=== PATIENT | female | born 2005 | race Caucasian/White ===

== ENCOUNTER 2023-12-10 16:36 | Observation (INO) | payer OTHER ==
[~2023-12-10] VITALS: Ht 157.5 cm; Wt 54.6 kg
[2023-12-10 18:47] LABS: BASO # 0.1 10^3/uL (0.0-0.2); BASO % 0.6 % (0.0-1.0); EOS # 0.3 10^3/uL (0.0-0.5); EOS % 3.7 % (0.0-3.0); HEMATOCRIT 36.3 % (36.0-47.0); HEMOGLOBIN 12.7 g/dl (12.0-15.5); LYMPH # 2.3 10^3/uL (1.5-5.0); LYMPH % 27.5 % (24.0-44.0); MEAN CORPUSCULAR HEMOGLOBIN 30.1 pg (27.0-33.0); MONO # 0.5 10^3/uL (0.0-0.8); MONO % 5.7 % (2.0-8.0); NEUTROPHILS # 5.2 10^3/uL (1.5-8.5); NEUTROPHILS % 62.3 % (36.0-66.0); PLATELET COUNT, AUTOMATED 237 10^3/uL (150-450); RED BLOOD COUNT 4.22 10^6/uL (4.00-5.40); WHITE BLOOD COUNT 8.4 10^3/uL (4.0-10.0)
[2023-12-10 19:07] LABS: LIPASE 28 U/L (12-53)
[2023-12-10 19:09] LABS: ALBUMIN 3.5 G/DL (3.2-5.2); ALKALINE PHOSPHATASE 44 U/L (46-116); ALT/SGPT < 9 U/L (7.0-40); AST/SGOT 11 U/L (<34); BILIRUBIN,DIRECT < 0.1 MG/DL (<0.4); BILIRUBIN,TOTAL 0.4 MG/DL (0.3-1.2); BLOOD UREA NITROGEN 6 MG/DL (9-23); CALCIUM LEVEL 9.2 MG/DL (8.5-10.1); CARBON DIOXIDE LEVEL 26 MMOL/L (20-31); CHLORIDE LEVEL 103 MMOL/L (98-107); CREATININE FOR GFR 0.55 MG/DL (0.55-1.30); GLUCOSE, FASTING 86 MG/DL (60-100); POTASSIUM SERUM 3.7 MMOL/L (3.5-5.1); SODIUM LEVEL 135 MMOL/L (136-145); TOTAL PROTEIN 6.3 G/DL (5.7-8.2)
[2023-12-11] MEDS: ACETAMINOPHEN *IV* 1,000 MG in IV 1 EA IV ONE (03:58)
[2023-12-11] MEDS: ONDANSETRON 4MG 2ML VIAL IV ONE ×2 (03:58→09:21)
[2023-12-11] MEDS: METOCLOPRAMIDE INJ 10MG/2ML VIAL IV ONE (05:33)
[2023-12-11] MEDS: MORPHINE 2 MG/ML 1ML VIAL IV ONE (05:34)
[2023-12-11] MEDS: NS 1,000 ML IV SCH (09:21)
[2023-12-11] MEDS ORDERED: MED REC IN PROGRESS XX SCH (11:10)
[2023-12-11] MEDS ORDERED: LORA-930 PO (11:36)
[2023-12-11] MEDS ORDERED: ADVA115A PO (11:36)
[2023-12-11] MEDS ORDERED: ALBU8.5H INH (11:36)
[2023-12-11] MEDS ORDERED: ONDA8TAB8 PO (11:36)
[2023-12-11] MEDS ORDERED: LEXA5TAB13 PO (11:36)
[2023-12-11] MEDS ORDERED: LEXA1TAB PO (11:36)
[2023-12-11] MEDS ORDERED: MULTTAB20 PO (11:36)
[2023-12-11] MEDS ORDERED: MONT10TA97 PO (11:36)
[2023-12-11] MEDS ORDERED: HOME MED LIST COMPLETE! XX SCH (11:40)
[2023-12-11] MEDS: ACETAMINOPHEN 500 MG TAB PO ONE (12:48)
[2023-12-11 15:58] VITALS: BP 96/56; TEMP 98.7; O2SAT 98
[2023-12-11] MEDS: ACETAMINOPHEN 500 MG TAB PO PRN (18:14)
[2023-12-11 20:00] VITALS: BP 102/54; TEMP 98.8; O2SAT 98
[2023-12-11] MEDS: ADVAIR HFA 115/21MCG INHALER INH SCH (20:40)
[2023-12-11] MEDS: ESCITALOPRAM OXALATE 5MG TABLET (LEXAPRO) PO SCH (20:44)
[2023-12-11] MEDS: oxyCODONE 5MG TAB PO PRN (20:44)
[2023-12-11] MEDS: MONTELUKAST 10 MG TAB PO SCH (20:44)
[2023-12-12] VITALS (7 sets, daily range): BP systolic 92–137; BP diastolic 51–87; TEMP 97.8–99.7; O2SAT 97–99
[2023-12-12] MEDS: ONDANSETRON 4MG 2ML VIAL IV PRN (08:11)
[2023-12-12 09:03] LABS: HEMATOCRIT 31.5 % (36.0-47.0); HEMOGLOBIN 10.9 g/dl (12.0-15.5); MEAN CORPUSCULAR HEMOGLOBIN 30.2 pg (27.0-33.0); MEAN CORPUSCULAR HGB CONC 34.6 g/dl (32.0-36.5); MEAN CORPUSCULAR VOLUME 87.3 fl (80.0-96.0); PLATELET COUNT, AUTOMATED 194 10^3/uL (150-450); RED BLOOD COUNT 3.61 10^6/uL (4.00-5.40); WHITE BLOOD COUNT 6.2 10^3/uL (4.0-10.0)
[2023-12-12] MEDS: MIRALAX *UNIT DOSE* 17GM PACKET PO SCH (13:58)
[2023-12-12] MEDS: MAGNESIUM CITRATE 300ML BTL PO ONE (16:58)
[2023-12-12] MEDS ORDERED: SLF 3 ML SYR IV PRN (18:50)
[2023-12-12] MEDS: SLF 3 ML SYR IV SCH (21:46)
[2023-12-13 02:30] VITALS: BP 82/51; TEMP 98.3; O2SAT 98
[2023-12-13] MEDS: BISACODYL 10MG SUPP PR ONE (06:03)
[2023-12-13 08:35] VITALS: BP 92/50; TEMP 99.4; O2SAT 98
[2023-12-13] MEDS ORDERED: MAGN400T2 PO (12:23)
[2023-12-13] MEDS ORDERED: COLA100C5 PO (12:23)
[2023-12-13] MEDS ORDERED: MIRA33506 PO (12:23)
[2023-12-13] MEDS: MOM 30ML SUSPENSION UDC PO ONE (13:05)
== END 2023-12-13 14:45 | disposition home or self-care (01) ==
LOC: M ED 16:36 → M ED INP 16:37 → M PED 12-11 16:00
PROVIDERS: ADMIT Advanced Practice Midwife; ATTEND Specialist
DX: O99.612 Diseases of the digestive system complicating pregnancy, second trimester (principal); K59.09 Other constipation; O26.892 Other specified pregnancy related conditions, second trimester; R10.31 Right lower quadrant pain; Z87.440 Personal history of urinary (tract) infections; Z3A.15 15 weeks gestation of pregnancy; Z91.010 Allergy to peanuts; Z91.018 Allergy to other foods; Z88.8 Allergy status to other drugs, medicaments and biological substances; Z79.899 Other long term (current) drug therapy
CPT/HCPCS: 36415; 74176; 74181; 76815; 76857; 80048; 80076; 81001; 83690; 84702; 85025; 85027; 86850; 86900; 86901; 87086; 87635; 94640; 94664; 96361; 96365; 96375; 96376; 99285; J0131; J2405; J2765

== ENCOUNTER 2023-12-23 12:29 | Emergency (ER) | payer OTHER ==
[~2023-12-23] VITALS: Ht 157.5 cm; Wt 55.2 kg
[~2023-12-23 12:29] MED LIST: ADVA115A PO; ALBU8.5H INH; COLA100C5 PO; LEXA1TAB PO; LEXA5TAB13 PO; LORA-930 PO; MAGN400T2 PO; MIRA1POW3 PO; MONT10TA97 PO; MULTTAB20 PO; ONDA8TAB8 PO
[2023-12-23 16:30] LABS: BASO # 0.1 10^3/uL (0.0-0.2); BASO % 0.7 % (0.0-1.0); EOS # 0.4 10^3/uL (0.0-0.5); EOS % 4.5 % (0.0-3.0); HEMATOCRIT 36.5 % (36.0-47.0); HEMOGLOBIN 12.7 g/dl (12.0-15.5); LYMPH # 2.3 10^3/uL (1.5-5.0); LYMPH % 25.2 % (24.0-44.0); MEAN CORPUSCULAR HEMOGLOBIN 30.7 pg (27.0-33.0); MEAN CORPUSCULAR HGB CONC 34.8 g/dl (32.0-36.5); MEAN CORPUSCULAR VOLUME 88.2 fl (80.0-96.0); MONO # 0.5 10^3/uL (0.0-0.8); MONO % 5.9 % (2.0-8.0); NEUTROPHILS # 5.8 10^3/uL (1.5-8.5); NEUTROPHILS % 63.4 % (36.0-66.0); PLATELET COUNT, AUTOMATED 230 10^3/uL (150-450); RED BLOOD COUNT 4.14 10^6/uL (4.00-5.40); WHITE BLOOD COUNT 9.2 10^3/uL (4.0-10.0)
[2023-12-23 17:04] LABS: ALBUMIN 3.3 G/DL (3.2-5.2); ALKALINE PHOSPHATASE 46 U/L (46-116); ALT/SGPT < 9 U/L (7.0-40); AST/SGOT 21 U/L (<34); BILIRUBIN,DIRECT < 0.1 MG/DL (<0.4); BILIRUBIN,TOTAL 0.4 MG/DL (0.3-1.2); BLOOD UREA NITROGEN 7 MG/DL (9-23); CALCIUM LEVEL 9.3 MG/DL (8.5-10.1); CARBON DIOXIDE LEVEL 26 MMOL/L (20-31); CHLORIDE LEVEL 105 MMOL/L (98-107); CREATININE FOR GFR 0.54 MG/DL (0.55-1.30); GLUCOSE, FASTING 77 MG/DL (60-100); POTASSIUM SERUM 3.9 MMOL/L (3.5-5.1); SODIUM LEVEL 138 MMOL/L (136-145); TOTAL PROTEIN 6.5 G/DL (5.7-8.2)
[2023-12-23 17:22] LABS: HCG, SERUM QUANTITATIVE 26409.7 MIU/ML (<4.2)
[2023-12-23] MEDS ORDERED: KETOROLAC 30 MG/ML 1ML VIAL IV ONE (18:50)
[2023-12-23] MEDS ORDERED: MACR100C43 PO (20:18)
[2023-12-23] MEDS ORDERED: PERCOCET PO (20:18)
[2023-12-23 20:26] VITALS: BP 93/50; TEMP 98.1; O2SAT 100
[2023-12-26 06:57] LABS: CHLAMYDIA DNA AMPLIFICATION NEGATIVE (NEGATIVE); GC DNA AMPLIFICATION NEGATIVE (NEGATIVE)
== END 2023-12-23 20:28 | disposition home or self-care (01) ==
LOC: M ED 12:29
DX: O23.42 Unspecified infection of urinary tract in pregnancy, second trimester (principal); O99.512 Diseases of the respiratory system complicating pregnancy, second trimester; O99.342 Other mental disorders complicating pregnancy, second trimester; Z3A.16 16 weeks gestation of pregnancy; Z87.59 Personal history of other complications of pregnancy, childbirth and the puerperium; Z79.899 Other long term (current) drug therapy; Z91.010 Allergy to peanuts
CPT/HCPCS: 76815; 80048; 80076; 81001; 84702; 85025; 87086; 87210; 87810; 87850; 96374; 99283; J1885

== ENCOUNTER → 2024-01-27 | Outpatient (CLI) | payer OTHER ==
[~2024-01-27] MED LIST changes: +MACR100C43 PO; -MIRA1POW3 PO; +MIRA33506 PO; +PERCOCET PO
== END ==
LOC: M WHC 13:54
PROVIDERS: ATTEND Obstetrics & Gynecology
DX: Z36.2 Encounter for other antenatal screening follow-up (principal)

== ENCOUNTER → 2024-02-14 | Outpatient (CLI) | payer OTHER ==
[2024-02-14 15:35] LABS: HEMATOCRIT 33.9 % (36.0-47.0); HEMOGLOBIN 11.5 g/dl (12.0-15.5); MEAN CORPUSCULAR HEMOGLOBIN 30.9 pg (27.0-33.0); MEAN CORPUSCULAR HGB CONC 33.9 g/dl (32.0-36.5); MEAN CORPUSCULAR VOLUME 91.1 fl (80.0-96.0); PLATELET COUNT, AUTOMATED 226 10^3/uL (150-450); RED BLOOD COUNT 3.72 10^6/uL (4.00-5.40)
[2024-02-14 16:58] LABS: GC DNA AMPLIFICATION NEGATIVE (NEGATIVE)
== END ==
LOC: M PLALAB 10:51
PROVIDERS: ATTEND Obstetrics & Gynecology
DX: Z34.92 Encounter for supervision of normal pregnancy, unspecified, second trimester (principal)

== ENCOUNTER → 2024-10-08 | Outpatient (REF) | payer OTHER ==
[~2024-10-08] MED LIST changes: +ONDA-284 PO; -ONDA8TAB8 PO
== END ==
LOC: M PLALAB 13:17
PROVIDERS: ATTEND Advanced Practice Midwife
DX: Z01.419 Encounter for gynecological examination (general) (routine) without abnormal findings (principal); Z12.4 Encounter for screening for malignant neoplasm of cervix

== ENCOUNTER → 2025-02-08 | Outpatient (REF) | payer OTHER | LOC: M LAB REF 17:40 | PROVIDERS: ATTEND Nurse Practitioner Family | DX: J06.9 Acute upper respiratory infection, unspecified (principal); Z20.828 Contact with and (suspected) exposure to other viral communicable diseases ==

== ENCOUNTER → 2025-02-15 | Outpatient (CLI) | payer OTHER | LOC: M WHC 11:12 | PROVIDERS: ATTEND Obstetrics & Gynecology | DX: N91.1 Secondary amenorrhea (principal) ==

== ENCOUNTER → 2025-02-24 | Outpatient (CLI) | payer OTHER ==
[2025-02-24 15:57] LABS: FOLLICLE STIMULATING HORMONE 5.1 mIU/ML; FREE T4 1.15 NG/DL (0.89-1.76); THYROID STIMULATING HORMONE 1.207 uIU/ML (0.55-4.78)
[2025-02-24 15:58] LABS: LUTEINIZING HORMONE 7.7 mIU/ML; PROLACTIN 3.45 NG/ML
== END ==
LOC: M LAB 14:29
PROVIDERS: ATTEND Obstetrics & Gynecology
DX: N91.1 Secondary amenorrhea (principal)

== ENCOUNTER → 2025-03-17 | Outpatient (CLI) | payer OTHER | LOC: M RAD 14:12 | PROVIDERS: ATTEND Physician Assistant | DX: M54.59 Other low back pain (principal) ==

== ENCOUNTER 2025-07-27 17:57 | Emergency (ER) | payer OTHER ==
[~2025-07-27] VITALS: Ht 157.5 cm; Wt 52.6 kg
[2025-07-27 20:09] LABS: HCG, SERUM QUALITATIVE NEGATIVE (NEGATIVE)
[2025-07-27] MEDS: KETOROLAC 30 MG/ML 1 ML VIAL IV ONE (20:19)
[2025-07-27 20:58] LABS: APPEARANCE, URINE CLEAR (CLEAR); BACTERIA, URINE AUTO NEGATIVE (NEGATIVE); BILIRUBIN, URINE AUTO NEGATIVE (NEGATIVE); BLOOD, URINE BLOOD NEGATIVE (NEGATIVE); GLUCOSE, URINE (UA) AUTO NEGATIVE (NEGATIVE); KETONE, URINE AUTO 1+ mg/dL (NEGATIVE); LEUKOCYTE ESTERASE, URINE AUTO NEGATIVE (NEGATIVE); MUCUS, URINE SMALL (NEGATIVE); NITRITE, URINE AUTO NEGATIVE (NEGATIVE); PROTEIN, URINE AUTO NEGATIVE (NEGATIVE); RBC, URINE AUTO 7 /HPF (0-3); SPECIFIC GRAVITY URINE AUTO 1.018 (1.002-1.035); SQUAMOUS EPITHELIAL CELL UR AU 2 /HPF (0-6); UROBILINOGEN, URINE AUTO 0.2 mg/dL (0.0-2.0); WBC, URINE AUTO 1 /HPF (0-3)
[2025-07-28] MEDS ORDERED: PERC5TAB12 PO (07:12)
[2025-07-28 07:36] VITALS: BP 107/65; TEMP 96.4; O2SAT 98
== END 2025-07-28 07:59 | disposition home or self-care (01) ==
LOC: M ED 17:57
DX: M54.16 Radiculopathy, lumbar region (principal); J45.909 Unspecified asthma, uncomplicated; F31.9 Bipolar disorder, unspecified; Z79.51 Long term (current) use of inhaled steroids; Z79.899 Other long term (current) drug therapy; Z79.810 Long term (current) use of selective estrogen receptor modulators (SERMs); Z91.010 Allergy to peanuts; Z91.011 Allergy to milk products
CPT/HCPCS: 72148; 81001; 84703; 96374; 99284; J1885